=== PATIENT | female | born 1990 | race Caucasian/White ===

== ENCOUNTER 2019-07-24 07:56 | Emergency (ER) | payer OTHER ==
[~2019-07-24] VITALS: Ht 162.6 cm; Wt 84.8 kg
--- NOTE | 2019-07-24 08:16 | NUR ---
PT IS IN ROOM #2B . DR MUHAMMAD EVALUATED THE PT.
[2019-07-24 08:59] LABS: *URINE HCG, QUAL NEGATIVE (NEGATIVE)
--- NOTE | 2019-07-24 09:11 | NUR ---
PT WAS D/C'd TO HOME. D/C INSTRUCTIONS GIVEN TO THE PT.
[2019-07-24 09:12] VITALS: BP 129/77
== END 2019-07-24 09:14 | disposition home or self-care (01) ==
LOC: ER 07:56
DX: R51 Headache (principal)
CPT/HCPCS: 70450; 84703; A4663

== ENCOUNTER 2022-01-22 02:55 | Emergency (ER) | payer MEDICAID, OTHER ==
[~2022-01-22] VITALS: Ht 165.1 cm; Wt 83.0 kg
--- NOTE | 2022-01-22 03:18 | NUR ---
DR:ENRRIQUE AT B/S for MSE IN PROGRESS.
--- NOTE | 2022-01-22 03:53 | NUR ---
PT going down for CT.
--- NOTE | 2022-01-22 04:10 | NUR ---
Patient back from CT.
[2022-01-22 04:53] LABS: CARBON DIOXIDE 28 mmol/L (21-32); CHLORIDE 103 mmol/L (98-107); CREATININE 0.7 mg/dL (0.6-1.3); GLUCOSE 91 mg/dL (74-106); POTASSIUM 3.9 mmol/L (3.5-5.1); UREA NITROGEN, BLOOD 6 mg/dL (7-18)
--- NOTE | 2022-01-22 04:53 | NUR ---
escorted patient to the bathroom steady of gait voided urine send to lab .
[2022-01-22 04:56] LABS: HEMATOCRIT 40.2 % (31.2-41.9); MEAN CORPUSCULAR HEMOGLOBIN 31.1 uug (24.7-32.8); MEAN CORPUSCULAR VOLUME 92.9 fL (75.5-95.3); PLATELET COUNT (AUTO) 282 K/uL (179-408)
[2022-01-22 05:18] LABS: *URINE HCG, QUAL NEGATIVE (NEGATIVE)
--- NOTE | 2022-01-22 05:43 | NUR ---
Patient discharged to home in stable condition. Ambulatory with steady gait. A/Ox4. NAD noted. Written and verbal after care instructions given. All belongings with patient. Patient verbalizes understanding of instructions. Stressed follow up or return to ER for worsening s/s.
[2022-01-22 05:46] VITALS: BP 110/68
== END 2022-01-22 05:46 | disposition home or self-care (01) ==
LOC: ER 03:36
DX: R00.2 Palpitations (principal); R51.9 Headache, unspecified; K21.9 Gastro-esophageal reflux disease without esophagitis; Z90.49 Acquired absence of other specified parts of digestive tract; F17.210 Nicotine dependence, cigarettes, uncomplicated
CPT/HCPCS: 36415; 70450; 71045; 84484; 84703; 85025; 93005; A4663

== ENCOUNTER 2022-04-02 00:15 | Emergency (ER) | payer MEDICAID ==
[~2022-04-02] VITALS: Ht 165.1 cm; Wt 81.2 kg
--- NOTE | 2022-04-02 00:32 | NUR ---
Pt not in waiting room.
[2022-04-02 01:00] LABS: *URINE HCG, QUAL NEGATIVE (NEGATIVE)
[2022-04-02] MEDS ORDERED: HYDROMORPHONE 1 MG/1 ML DISP.SYRIN IV ONE (01:00)
[2022-04-02] MEDS ORDERED: ONDANSETRON 4 MG/2 ML VIAL IV ONE (01:00)
--- NOTE | 2022-04-02 01:15 | NUR ---
Inserted 20G IV on R AC SL. Refused to take prescribed meds.
[2022-04-02 01:16] LABS: HEMATOCRIT 38.3 % (31.2-41.9); MEAN CORPUSCULAR HEMOGLOBIN 31.7 uug (24.7-32.8); MEAN CORPUSCULAR VOLUME 90.9 fL (75.5-95.3); PLATELET COUNT (AUTO) 245 K/uL (179-408)
[2022-04-02 01:17] LABS: CARBON DIOXIDE 27 mmol/L (21-32); CHLORIDE 101 mmol/L (98-107); CREATININE 0.8 mg/dL (0.6-1.3); GLUCOSE 100 mg/dL (74-106); POTASSIUM 3.7 mmol/L (3.5-5.1); UREA NITROGEN, BLOOD 8 mg/dL (7-18)
[2022-04-02] MEDS ORDERED: SWABABLE VALVE TRANSFER SET EA MC ONE (01:19)
[2022-04-02] MEDS ORDERED: IOHEXOL 300MG/ML 100 ML INFUS..BTL ONE (01:19)
[2022-04-02] MEDS ORDERED: IV NORMAL SALINE 250 ML IV ONE (01:19)
[2022-04-02 01:23] LABS: ALANINE AMINOTRANSFERASE 18 U/L (14-59); ALKALINE PHOSPHATASE 77 U/L (50-136); ASPARTATE AMINOTRANSFERASE 11 U/L (15-37); BILIRUBIN,DIRECT < 0.1 mg/dL (0.0-0.2); BILIRUBIN,TOTAL 0.2 mg/dL (0.2-1.0); LIPASE 80 U/L (73-393); TOTAL PROTEIN, SERUM 7.7 g/dL (6.4-8.2)
--- NOTE | 2022-04-02 01:28 | NUR ---
CT abd in process.
[2022-04-02] MEDS ORDERED: predniSONE 20 MG TABLET PO ONE (02:30)
[2022-04-02] MEDS ORDERED: AMOXICILLIN-CLAVUL 875-125MG TABLET PO ONE (02:30)
[2022-04-02] MEDS ORDERED: PRED20TA PO (02:36)
[2022-04-02] MEDS ORDERED: AMOX-430 PO (02:36)
[2022-04-02] MEDS ORDERED: ONDA4TAB5 PO (02:36)
[2022-04-02] MEDS ORDERED: AMOXICILLIN-CLAVUL 875-125MG TABLET ONE (03:03)
[2022-04-02] MEDS ORDERED: predniSONE 20 MG TABLET ONE (03:11)
[2022-04-02 03:46] VITALS: BP 118/88
--- NOTE | 2022-04-02 03:46 | NUR ---
Patient discharged to home in stable condition. Written and verbal after care instructions given. Patient verbalizes understanding of instructions. Stressed follow up or return to ER for worsening s/s.
== END 2022-04-02 03:47 | disposition home or self-care (01) ==
LOC: ER 00:15
DX: K50.00 Crohn's disease of small intestine without complications (principal); F17.210 Nicotine dependence, cigarettes, uncomplicated; F41.9 Anxiety disorder, unspecified; Z90.49 Acquired absence of other specified parts of digestive tract
CPT/HCPCS: 99285; 74177; 80076; 80048; 84703; 83690; 85025; 36415; Q9967; A4663; J7512